=== PATIENT | female | born 1960 | race Caucasian/White ===

== ENCOUNTER 2017-10-02 07:52 | Day surgery (SDC) | END 2017-10-02 16:35 | disposition home or self-care (01) ==

== ENCOUNTER 2017-11-21 06:21 | Day surgery (SDC) | END 2017-11-21 13:15 | disposition home or self-care (01) ==

== ENCOUNTER 2018-08-17 08:01 | Emergency (ER) | payer MEDICAID ==
[~2018-08-17] VITALS: Ht 167.6 cm; Wt 97.2 kg
[2018-08-17 08:06] VITALS: BP 142/64; PULSE 89; RESP 20; Ht 167.6 cm; Wt 97.2 kg
[2018-08-17] MEDS ORDERED: VALA10004 PO (09:09)
[2018-08-17] MEDS ORDERED: ACET1TAB40 PO (09:09)
--- NOTE | 2018-08-17 09:19 | ERD ---
ER Documentation Chief Complaint Chief Complaint Complains of a rash and itching x 3 days HPI 57-year-old female complaining of rash on her right chest and right upper back times 3 days. Reports constant burning pain at the site of the rash. She has not taken any medications at home. Patient has recent right breast cancer diagnosis, and finished chemotherapy in May 2018. She is currently taking amoxicillin for a tooth pain. Reports stress at work. Denies fever or chills. Denies shortness of breath. Denies itching. Denies exposure to new foods or new cleaning products. ROS All systems reviewed and are negative except as per history of present illness. Medications Home Meds Active Scripts Acetaminophen with Codeine (Acetaminophen-Cod #3 Tablet) 1 Each Tablet, 1 TAB PO Q6H PRN for PAIN, #7 TAB Prov:SHON LYNN. FORMING MACHINE ADJUSTER 08/17/18 Valacyclovir HCl (Valtrex) 1,000 Mg Tablet, 1000 MG PO TID for 7 Days, TAB Prov:SHON LYNN. FORMING MACHINE ADJUSTER 08/17/18 Allergies Allergies: Coded Allergies: No Known Allergies (Verified Allergy, Unknown, 11/21/17) PMhx/Soc History of Surgery: Yes (RT BREAST PARTIAL MASTECTOMY, C SECTION) Anesthesia Reaction: No Hx Neurological Disorder: No Hx Respiratory Disorders: No Hx Cardiac Disorders: No Hx Psychiatric Problems: No Hx Miscellaneous Medical Probl: Yes (breast ca) Hx Alcohol Use: No Hx Substance Use: No Hx Tobacco Use: No Physical Exam Vitals Vital Signs Date Temp Pulse Resp B/P (MAP) Pulse Ox O2 O2 Flow FiO2 Time Delivery Rate 08/17/18 99.2 89 20 142/64 99 08:06 (90) Physical Exam General: Well-developed, well-nourished, conscious and coherent, in no distress Skin: Warm and dry, good texture and turgor. Large area of cluster of vesicular lesions on erythematous bases noted on the right upper chest and right upper back, along the T2 dermatome. Head: Normocephalic without evidence of trauma Chest: Normal AP diameter. Good expansion without retractions. Nontender. Lungs are clear to auscultate bilaterally with good tidal volume Heart: Regular rate and rhythm. No murmur, rub, or gallops heard Extremities: Full range of motion. Good strength bilaterally. No erythema, ecchymosis, or edema. Peripheral pulses are intact. Sensation intact Neuro: Alert and oriented 4, GCS 15. Procedures/MDM Well-appearing 57-year-old female present ED with burning and painful vesicular lesions. The lesions as appearance of herpes zoster. I doubt allergic reaction or anaphylaxis. I doubt toxic shock syndrome, streptococcal scalded disease syndrome, toxic epidermal necrolysis, Noe-Dylon syndrome, [place] spotted fever. Patient appears well, stable for discharge and outpatient management. Medical decision making shared with patient and family. Education provided to patient and family. Patient and family expressed understanding of the plan. Medications on discharge: Valacyclovir, Tylenol with codeine. Follow-up: Primary care provider in 2-3 days or return to ED if worse. Disclaimer: Inadvertent spelling and grammatical errors are likely due to EHR/dictation software use and do not reflect on the overall quality of patient care. Also, please note that the electronic time recorded on this note does not necessarily reflect the actual time of the patient encounter. Departure Diagnosis: Primary Impression: Shingles Herpes zoster complications: without complications Qualified Codes: B02.9 - Zoster without complications Condition: Stable Patient Instructions: Shingles (Herpes Zoster) [facility] Usted se paz hecho un examen mdico de control que le indica que no est en cele condicin que requiera tratamiento urgente en el Departamento de Emergencia. Un estudio ms profundo y el tratamiento de mccurdy condicin pueden esperar sin ningn riesgo hasta que usted sea atendida/o en el consultorio de mccurdy mdico o cele clnica. Es responsabilidad suya arreglar cele viraj para el seguimiento del rob. MANEJO DE CONDICIONES NO URGENTES EN EL FUTURO 1) Si usted tiene un mdico de atencin primaria: Usted debera llamar a mccurdy mdico de atencin primaria antes de venir al departamento de emergencia. Despus de las horas de consultorio, mccurdy doctor o mccurdy asociado/a est disponible por telfono. El mdico o enfermero de cortez en el servicio telefnico puede asesorarle por cyndy medio para atender el problema, o rob contrario se puede programar cele viraj. 2) Si usted no tiene un mdico de atencin primaria: Llame al mdico o clnica de referencia que aparece abajo altagracia las horas de consultorio para hacer cele viraj para que le vean. CLINICAS: [facility] [phone] [facility] [phone] [facility] [phone] [facility] [phone] [facility] [phone] [address] [facility]. [phone] [address] [facility]. [facility] () Usted se paz hecho un examen mdico de control que le indica que no est en cele condicin que requiera tratamiento urgente en el Departamento de Emergencia. Un estudio ms profundo y el tratamiento de mccurdy condicin pueden esperar sin ningn riesgo hasta que usted sea atendida/o en el consultorio de mccurdy mdico o cele clnica. Es responsabilidad suya arreglar cele viraj para el seguimiento del rob. MANEJO DE CONDICIONES NO URGENTES EN EL FUTURO 1) Si usted tiene un mdico de atencin primaria: Usted debera llamar a mccurdy mdico de atencin primaria antes de venir al departamento de emergencia. Despus de las horas de consultorio, mccurdy doctor o mccurdy asociado/a est disponible por telfono. El mdico o enfermero de cortez en el servicio telefnico puede asesorarle por cyndy medio para atender el problema, o rob contrario se puede programar cele viraj. 2) Si usted no tiene un mdico de atencin primaria: Llame al mdico o condado institucions de referencia que aparece abajo altagracia las horas de consultorio para hacer cele viraj para que le vean. SI USTED NO PUEDE PAGAR PARA TRAVIS UN MEDICO puede ir a: [facility] [address] [place] [address] [facility] [address] [place] [address] [facility] [address] [place] [address] [address] [place] [facility] [address] [place], [place] [id number] Additional Instructions: Llame al doctor nombrado abajo (Referral Sources) MAANA y scott cele VIRAJ PARA DENTRO DE CELE SEMANA. Dgale a la secretaria que nosotros le instruimos hacer esta viraj.Avise o llame si mccurdy condicin se empeora antes de la viraj. SHON LYNN NP Aug 17, 2018 09:19
== END 2018-08-17 09:32 | disposition home or self-care (01) ==
LOC: FTE 08:01
DX: B02.9 Zoster without complications (principal); R40.2412 Glasgow coma scale score 13-15, at arrival to emergency department; Z85.3 Personal history of malignant neoplasm of breast
CPT/HCPCS: 99283